=== PATIENT | female | born 1945 | race Caucasian/White ===

== ENCOUNTER 2022-10-18 12:34 | Emergency (ER) | payer OTHER ==
[~2022-10-18] VITALS: Ht 157.5 cm; Wt 78.0 kg
[2022-10-18] MEDS ORDERED: SYNTHROID100 MCG (12:47)
[2022-10-18] MEDS ORDERED: SIMVASTATIN5 MG (12:47)
[2022-10-18] MEDS ORDERED: PEPCID AC20 MG PO (18:55)
== END 2022-10-18 19:32 | disposition home or self-care (01) ==
LOC: ER 12:34
DX: R10.9 Unspecified abdominal pain (principal); E78.00 Pure hypercholesterolemia, unspecified; E03.9 Hypothyroidism, unspecified; K57.30 Diverticulosis of large intestine without perforation or abscess without bleeding